=== PATIENT | male | born 1975 | race Caucasian/White ===

== ENCOUNTER → 2018-02-14 | Day surgery (SDC) | payer OTHER ==
--- NOTE | 2018-02-13 17:34 | History & Physical Pre-Op ---
General Information and HPI History of Present Illness: Brown is a 42-year-old male who presents with a long-standing and worsening complaint of a painful lesion to the dorsal lateral aspect of his left foot. Patient has undergone an extended course of conservative care, including rest, immobilization and courses of NSAIDs. None of this is yielded her any significant relief. The patient was referred to our office from Thomas Gauthier DPM. The patient presents today for preoperative surgical consultation. Allergies/Medications Allergies: Coded Allergies: No Known Allergies (02/10/18) Past History Surgical History Pertinent Surgical History: appendectomy, spinal fusion Review of Systems Review of Systems: Unremarkable except that noted in history of present illness Exam & Diagnostic Data Physical Exam: Lungs clear bilaterally. Heart sounds rate and rhythm regular. Lower extremity physical exam demonstrates intact pedal pulses bilaterally. Dorsalis pedis and posterior tibial arteries are palpable bilaterally. Patient without any sensory motor deficits. Deep tendon reflexes grossly intact. Patient noted assuming pain with palpation and range of motion through the left fifth metatarsophalangeal joint. There is a eschar at the dorsal lateral aspect of the left fifth metatarsal head. X-rays demonstrate retained foreign body. Assessment/Plan Assessment/Plan: Painful lesion left foot. A lengthy discussion reviewing both surgical and conservative options was held the patient at bedside and the patient elects to go forward with surgery despite the risks. As Ranked By This Provider Problem List: 1. Neoplasm of unspecified behavior of bone, soft tissue, and skin Attending MD Review Statement Attending Statement Attending MD Statement: examined this patient
[~2018-02-14] VITALS: Ht 180.3 cm; Wt 86.2 kg
--- NOTE | 2018-02-14 09:04 | Operative Report ---
Operative/Inv Procedure Report Surgery Date: 02/14/18 Name of Procedure: 1 Excision of soft tissue lesion left foot 2 closure of open surgical wound with local random advancement flap 3 intraoperative administration of ankle block anesthesia Pre-Operative Diagnosis: 1 soft tissue lesion left foot Post-Operative Diagnosis: The same Estimated Blood Loss: scant Surgeon/Cigar Making Machine Operator: Gilberto ESCALERA,Gaston Gauthier DPM Anesthesia: moderate sedation, block Operative/Procedure Note Note: After obtaining informed consent the patient was brought to the operating room and placed on the operating table in the supine position. The patient isn't securely fastened to the operating table utilizing safety belt. After administration of IV sedation, 10 mL of 0.5% Marcaine plain was infiltrated about the patient's left ankle. A well-padded ankle tourniquet was placed about the patient's left lower extremity. 2 g of Ancef were delivered intravenously times one dose. Left foot and ankle then scrubbed prepped and draped in usual aseptic manner. Left lower extremity is elevated to examine to limb, which point the ankle tourniquet inflated 250 mmHg. Attention directed dorsal aspect the left foot where a lesion was identified overlying the fifth metatarsal head. 2 converging semielliptical incisions coming the lesion were marked out with a skin marker and a 15 blade was utilized to excise lesion in toto. Was then passed from the operative field and sent for pathologic inspection. Dissection was then carried down to subtenons tissues where a bursa was identified and freed of its adjacent soft tissue attachments. Was distracted and passed from the operative field was sent a specimen for pathologic inspection. Nipple was then irrigated cuff Svensson normal sterile saline. The adjacent tissues were then undermined, mobilized and advanced centrally towards the open portion the wound. The deep side of the flap was held together with 4-0 Vicryl. The skin edges were reapproximated with 4-0 nylon. Incision just with Xeroform 4 x 4's Kerlix and an Stefan wrap. The patient was noted tolerate both procedure and anesthesia well and the patient was transported from the operating room to recovery by sent stable best assess intact both the dorsal medial dorsal lateral flaps.
== END ==
LOC: STS 02:06
DX: D21.22 Benign neoplasm of connective and other soft tissue of left lower limb, including hip (principal); M19.90 Unspecified osteoarthritis, unspecified site
CPT/HCPCS: 88304; 88305; J0690; J1100; J2001; J2250